=== PATIENT | male | born 1995 | race Caucasian/White ===

== ENCOUNTER 2017-05-23 14:58 | Emergency (ER) | payer BC ==
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
[2017-05-23 17:27] VITALS: BP 142/91
== END 2017-05-23 16:55 | disposition short-term general hospital (02) ==
LOC: ER 14:58
DX: S00.33XA Contusion of nose, initial encounter (principal); S00.10XA Contusion of unspecified eyelid and periocular area, initial encounter; S00.83XA Contusion of other part of head, initial encounter; Y04.2XXA Assault by strike against or bumped into by another person, initial encounter; Y93.9 Activity, unspecified; Y92.9 Unspecified place or not applicable; H53.40 Unspecified visual field defects